=== PATIENT | female | born 1985 | race Caucasian/White ===

== ENCOUNTER 2017-05-18 12:17 | Emergency (ER) | payer OTHER ==
[~2017-05-18] VITALS: Ht 167.6 cm; Wt 79.4 kg
[2017-05-18] MEDS ORDERED: BACTRIM DS TAB1 EACH PO (16:21)
[2017-05-18] MEDS ORDERED: KETO10TA2 PO (16:21)
== END 2017-05-18 16:27 | disposition home or self-care (01) ==
LOC: ER 12:17
DX: N39.0 Urinary tract infection, site not specified (principal); B34.9 Viral infection, unspecified

== ENCOUNTER 2023-03-15 14:03 | Outpatient (CLI) | payer OTHER ==
[~2023-03-15 14:03] MED LIST: BACTRIM DS TAB1 EACH PO; KETO10TA2 PO
== END 2023-03-15 14:07 | disposition home or self-care (01) ==
LOC: MAMO-SONO 14:03
PROVIDERS: ATTEND Obstetrics & Gynecology Maternal & Fetal Medicine
DX: N63 Unspecified lump in breast (principal); N64.4 Mastodynia; N60.11 Diffuse cystic mastopathy of right breast; Z12.31 Encounter for screening mammogram for malignant neoplasm of breast